=== PATIENT | female | born 1965 | race Caucasian/White ===

== ENCOUNTER 2023-05-13 15:31 | Emergency (ER) | payer OTHER, SELFPAY ==
[2023-05-13 15:33] VITALS: BP 173/91
[2023-05-13 16:36] LABS: % Basophils 0.6 % (0-2); % Eosinophils 7.8 % (0-6); % Immature Granulocytes 0.5 % (0-0.5); % Lymphocytes 30.2 % (20.5-51.1); % Monocytes 4.3 % (1.7-9.3); % Neutrophils 56.6 % (42.2-75.2); Absolute Basophils 0.1 10^3/uL (0-0.2); Absolute Eosinophils 0.8 10^3/uL (0-0.7); Absolute Immature Granulocytes 0.1 10^3/uL (0-0.05); Absolute Lymphocytes 3.3 10^3/uL (1.2-3.4); Absolute Monocytes 0.5 10^3/uL (0.1-0.6); Absolute Neutrophils 6.1 10^3/uL (1.4-6.5); Hematocrit 37.2 % (37.0-47.0); Mean Corp Hgb Conc. 34.9 g/dL (33.0-37.0); Mean Corpuscular Hgb 28.3 pg (27.0-31.0); Mean Platelet Volume 10.2 fL (7.4-10.4); Nucleated Red Blood Cells % 0 %; Platelet Count 217 10^3/uL (130-400); Red Blood Cell Count 4.59 10^6/uL (4.20-5.40); Red Cell Dist. Width 12.2 % (11.5-14.5); White Blood Cell Count 10.8 10^3/uL (4.8-10.8)
[2023-05-13 16:45] LABS: ALT (SGPT) 42 U/L (0-35); AST (SGOT) 29 U/L (14-36); Albumin 4.4 g/dl (3.5-5.0); Alkaline Phosphatase 78 U/L (38-126); Blood Urea Nitrogen 17 mg/dl (7-17); Carbon Dioxide 27 mmol/L (22-30); Chloride 104 mmol/L (98-107); Glucose 167 mg/dl (70-99); Potassium 4.3 mmol/L (3.5-5.1); Sodium 135 mmol/L (135-145); Total Bilirubin 0.6 mg/dl (0.2-1.3); Total Protein 6.7 g/dl (6.3-8.2); eGFR > 60.00
--- NOTE | 2023-05-13 17:30 | ED.GENMED ---
History of Present Illness
General
Chief Complaint: Abdominal Symptoms
Time Seen by Provider: 05/13/23 15:51
Travel History
Have you had any contact with someone who has COVID-19?: No
Do you have any symptoms of coronavirus? Fever > 100 degrees, chills, cough, shortness of breath, sore throat, loss of taste or smell, muscle aches, or headache?: No
History of Present Illness
History of Present Illness:
58-year-old female presents to the emergency department for evaluation of right-sided lower abdominal pain beginning today. She notes having mild diarrhea beginning last night, this improved today however pain gradually worsened throughout the day.
He denies any fever, chills, sweats, nausea, vomiting, or rashes. Did not take any medication for pain control today
Past History
Past History
ED Past Medical History: HTN, Hypercholesterolemia, NIDDM and Other (Polycystic ovary, diverticulitis)
ED Past Surgical History: Other (Cholecystectomy, abdominal hernia repair, laparoscopy)
Social History
Tobacco: Non-smoker
Personal:
Review of Systems
Review of Systems
Allergies reviewed?: Yes
All Other Systems: ROS reviewed and negative except as documented in HPI and ROS
Phy Exam
Physical Exam
Physical Exam:
GEN: Well appearing, NAD, WDWN
HEENT: Oral mucosa moist, no scleral icterus
Cardiac: Regular rate
Lung: No respiratory distress, no tachypnea
Abdomen: Soft, focal right lower quadrant tenderness, no rigidity
MSK: No gross deformity or injuries
Skin: Good color, no pallor or jaundice, no rashes
Neuro: AO x3, moves all extremities freely
Psych: Calm, cooperative
Course
Orders/Labs/Results
Orders:
Orders
05/13/23 16:06
CT Abd/Pel (IV only)-DH only Urgent
Comment:
Reason For Exam: RLQ pain
05/13/23 16:24
Complete Blood Count/With Diff Urgent
Comprehensive Metabolic Panel Urgent
Abnormal Lab Results
05/13/23
16:24
Abs Immat Gran (auto) 0.1 H 10^3/uL
(0-0.05)
Absolute Eos (auto) 0.8 H 10^3/uL
(0-0.7)
Eosinophils % 7.8 H %
(0-6)
Glucose 167 H mg/dl
(70-99)
ALT 42 H U/L
(0-35)
05/13/23 16:24
05/13/23 16:24
Vital Signs
Initial and Last Documented VS:
Initial Vital Signs
Temp Pulse Resp BP Pulse Ox
98.0 F 68 16 173/91 97
05/13/23 15:33 05/13/23 15:33 05/13/23 15:33 05/13/23 15:33 05/13/23 15:33
Last Documented Vital Signs
Temp Pulse Resp BP Pulse Ox
98.0 F 73 18 156/93 97
05/13/23 15:33 05/13/23 17:52 05/13/23 17:52 05/13/23 17:52 05/13/23 17:52
MDM/Problems Addressed
MDM/Problems Addressed:
Patient's labs are reassuring. CT shows no evidence for appendicitis. She has no lower urinary tract voiding symptoms to suggest UTI. Likely self-limited viral syndrome, supportive care discussed
*Critical Care Note
Total Time (30-74mins, 75-104mins- exclusive of procedures): Not Applicable
ED Attending Note
-
Portions of this chart may have been created with voice recognition software.� Occasional wrong word or��sound alike� substitutions may have occurred due to the inherent limitations of voice recognition software.
Discharge Plan
Departure
Patient Disposition: Home (Routine Discharge)
Date of Disposition: 05/13/23
Time of Disposition: 17:30
Patient with high blood pressure during this ER visit?: No
Discharge Problem:
Acute right lower quadrant pain
Instructions: Abdominal Pain
Prescriptions:
No Action
metformin [Fortamet] 1,000 MG tablet extended release 24hr
1,000 mg PO BID
hydrocodone-acetaminophen [Vicodin] 1 EACH tablet
1 ea PO Q6HPRN PRN (Reason: pain) Qty: 20 0RF
hydrocodone-acetaminophen [Vicodin] 1 EACH tablet
1 ea PO Q6HPRN PRN (Reason: pain) Qty: 20 0RF
psyllium husk (aspartame) [Metamucil Fiber Singles] 1 PACKET powder in packet
1 packet PO DAILY Qty: 10 0RF
psyllium husk (aspartame) [Metamucil Fiber Singles] 1 PACKET powder in packet
1 packet PO DAILY Qty: 10 0RF
Referrals:
Jeanine Morrell MD [Family Provider] -
Interventions
Interventions:
ED- Fall Risk Assessment Last Done: 05/13/23 16:27
*Nursing Disposition Last Done: 05/13/23 17:53
IE-Kxatkq-Dguqhhvztl Assessment Last Done: 05/13/23 16:27
Discharge Date and Time
Discharge Date/Time: 05/13/23 17:53
[2023-05-13 17:52] VITALS: BP 156/93
== END 2023-05-13 17:53 | disposition home or self-care (01) ==
LOC: EMR 15:31
PROVIDERS: Physician Assistant; EMERGENCY PHYSICIAN Emergency Medicine; FAMILY PHYSICIAN Family Medicine
DX: R10.31 Right lower quadrant pain (principal); R19.7 Diarrhea, unspecified; E11.9 Type 2 diabetes mellitus without complications; E78.00 Pure hypercholesterolemia, unspecified; I10 Essential (primary) hypertension; E28.2 Polycystic ovarian syndrome; K57.92 Diverticulitis of intestine, part unspecified, without perforation or abscess without bleeding; Z90.49 Acquired absence of other specified parts of digestive tract; Z91.040 Latex allergy status; Z91.048 Other nonmedicinal substance allergy status; Z79.84 Long term (current) use of oral hypoglycemic drugs
CPT/HCPCS: 99285; 74177; 80053; 85025; Q9967

== ENCOUNTER → 2023-08-24 07:15 | Outpatient (REF) | payer OTHER, SELFPAY | LOC: HWRAD 07:15 | PROVIDERS: ATTENDING PHYSICIAN Family Medicine | DX: D17.1 Benign lipomatous neoplasm of skin and subcutaneous tissue of trunk (principal) | CPT/HCPCS: 76604 ==

== ENCOUNTER → 2023-09-17 16:17 | Outpatient (REF) | payer OTHER, SELFPAY | LOC: MRI 3T 16:17 | PROVIDERS: ATTENDING PHYSICIAN Surgery; FAMILY PHYSICIAN Family Medicine | DX: R22.2 Localized swelling, mass and lump, trunk (principal) | CPT/HCPCS: 72197; A9575 ==

== ENCOUNTER → 2023-10-22 06:45 | Outpatient (REF) | payer OTHER, SELFPAY | LOC: MRI 3T 06:45 | PROVIDERS: ATTENDING PHYSICIAN Surgery; FAMILY PHYSICIAN Family Medicine | DX: R93.89 Abnormal findings on diagnostic imaging of other specified body structures (principal) | CPT/HCPCS: 73718 ==

== ENCOUNTER 2023-11-01 06:23 | Day surgery (SDC) | payer OTHER, SELFPAY ==
[2023-11-01] VITALS (9 sets, daily range): BP systolic 83–127; BP diastolic 63–88; BMI 31.3
[2023-11-01 08:32] LABS: Glucose - Point of Care 198 mg/dl (70-99)
--- NOTE | 2023-11-01 08:39 | W.SUR.PREOP ---
Pre-Operative Surgical Note
-
I have examined this patient prior to the performance of the scheduled procedure.
The patient's condition is unchanged from the time of the current History and
Physical and the patient is able to undergo the scheduled procedure.
[2023-11-01] MEDS: TYLENOL 1000 MG PO (08:40)
[2023-11-01] MEDS: NORMOSOL-R 1000 IV (08:41)
--- NOTE | 2023-11-01 10:12 | W.IMMPOSTOP ---
Surgical Immed Post Op Note
-
Primary Surgeon: Papito Nava MD
Assisting Surgeon: None
Pre-op Diagnosis: Left lower back mass
Post-op Diagnosis: Same
Procedure Performed: Excision of left lower back intramuscular lipoma
Anesthesia Type: General
Specimen / Cultures: Intramuscular lower back lipoma
Estimated Blood Loss: 1 cc
Complications: None
Operative Findings: Unencapsulated lipoma of the left lower back deep to the paraspinal muscle fascia excised in pieces.
--- NOTE | 2023-11-01 15:56 | OR.RPT ---
Operative Report
Operative Report
Patient Name: Beverly Morris
: 1965
Date of Operation: 11/01/2023
Preoperative Diagnosis: Left lower back mass
Postoperative Diagnosis: Same
Procedure(s):
Excision of left lower back intramuscular lipoma
Surgeon(s):
Dr. Nava
Dividing Machine Operator(s):
LINDA Osorio
Anesthesia: MAC
Estimated Blood Loss: 1 cc
Urine Output: None
Drains/Lines/Implants: None
Specimens:
1. Intramuscular lower back lipoma
Indication for surgery:
This is a 58-year-old female with a symptomatic lump on her left lower back near the midline. We did obtain an MRI to help better characterize the mass but no lesion was found despite being able to palpate it. After discussion of risk benefits and
alternatives he elected and was consented for surgery.
Findings at the time of surgery:
Patient had a 3 x 4 cm, unencapsulated, interdigitating and intramuscular lipoma of the left lower back. Excised in pieces.
Details of the operation:
The patient was brought to the operating room a placed in the prone position. After appropriate sedation by anesthesia, the area of the back was prepped and draped in the usual fashion. A linear incision over natural skin line was made over the
mass and carried down through the subcutaneous tissue. The lipoma was fairly deep and the fascia of the paraspinal muscles had to be opened up to identify it. This was an unencapsulated lipoma with multiple interdigitations. This was excised in
pieces. The cavity was then irrigated and hemostasis was assured. The space was then closed in layers using 3-0 Vicryl sutures followed by a running 4-0 Monocryl subcuticular. The wound was then dressed with Dermabond. All counts were correct at
the end of procedure. The patient was then transferred to the PACU for recovery.
I was the attending physician and performed the procedure with assistance from the EMPLOYEE BENEFITS COORDINATOR above. I was present for all portions of the case, except for skin closure.
Papito Nava MD
== END 2023-11-01 11:31 | disposition home or self-care (01) ==
LOC: SDS 06:23
PROVIDERS: ATTENDING PHYSICIAN Surgery
DX: D17.1 Benign lipomatous neoplasm of skin and subcutaneous tissue of trunk (principal); R22.2 Localized swelling, mass and lump, trunk
CPT/HCPCS: 21930; 88304; 82962

== ENCOUNTER → 2023-12-13 07:25 | Outpatient (REF) | payer OTHER, SELFPAY | LOC: WDC 07:25 | PROVIDERS: ATTENDING PHYSICIAN Obstetrics & Gynecology Gynecology; FAMILY PHYSICIAN Family Medicine | DX: Z12.31 Encounter for screening mammogram for malignant neoplasm of breast (principal) | CPT/HCPCS: 77063; 77067 ==

== ENCOUNTER 2024-05-07 10:19 | Outpatient (RCR) | payer OTHER, SELFPAY | END 2024-05-07 23:59 | disposition home or self-care (01) | LOC: RPT 10:19 | PROVIDERS: ATTENDING PHYSICIAN Physician Assistant | DX: S29.019D Strain of muscle and tendon of unspecified wall of thorax, subsequent encounter (principal); Z73.6 Limitation of activities due to disability; Z91.81 History of falling | CPT/HCPCS: 97010; 97110; 97112; 97140; 97162 ==

== ENCOUNTER → 2024-05-08 15:23 | Outpatient (REF) | payer OTHER, SELFPAY | LOC: RAD 15:23 | PROVIDERS: ATTENDING PHYSICIAN Family Medicine | DX: M25.512 Pain in left shoulder (principal) | CPT/HCPCS: 73030 ==

== ENCOUNTER 2024-06-03 06:26 | Outpatient (RCR) | payer OTHER, SELFPAY | END 2024-06-03 23:59 | disposition home or self-care (01) | LOC: RPT 06:26 | PROVIDERS: ATTENDING PHYSICIAN Physician Assistant | DX: S29.019D Strain of muscle and tendon of unspecified wall of thorax, subsequent encounter (principal); Z73.6 Limitation of activities due to disability; Z91.81 History of falling | CPT/HCPCS: 97010; 97110; 97140 ==

== ENCOUNTER 2024-06-09 06:18 | Day surgery (SDC) | payer OTHER, SELFPAY ==
[2024-06-09 07:25] LABS: Glucose - Point of Care 242 mg/dl (70-99)
== END 2024-06-09 08:32 | disposition home or self-care (01) ==
LOC: GI 06:18
PROVIDERS: ATTENDING PHYSICIAN Specialist
DX: Z12.11 Encounter for screening for malignant neoplasm of colon (principal); Z86.0101 Personal history of adenomatous and serrated colon polyps; Z80.0 Family history of malignant neoplasm of digestive organs; K57.30 Diverticulosis of large intestine without perforation or abscess without bleeding
CPT/HCPCS: G0105; 82962

== ENCOUNTER 2024-07-02 07:25 | Outpatient (RCR) | payer OTHER, SELFPAY | END 2024-07-07 23:59 | disposition home or self-care (01) | LOC: RPT 07:25 | PROVIDERS: ATTENDING PHYSICIAN Physician Assistant | DX: S29.019D Strain of muscle and tendon of unspecified wall of thorax, subsequent encounter (principal); Z73.6 Limitation of activities due to disability; M62.81 Muscle weakness (generalized); M75.02 Adhesive capsulitis of left shoulder; M25.512 Pain in left shoulder; Z91.81 History of falling | CPT/HCPCS: 97010; 97110; 97140 ==